=== PATIENT | male | born 1955 | race Caucasian/White ===

== ENCOUNTER → 2017-05-04 | Outpatient (CLI) | payer OTHER ==
[~2017-05-04] MED LIST: ALPR-475 PO; APIX2.5T PO; ASPI-496 PO; CARV6.2512 PO; CHOL20002 PO; CYAN1TAB29 PO; FURO20TA3 PO; HYDR-3307 PO; LEVO200T PO; LISI-167 PO; MULT-412 PO; NITR0.4T SL; OMEP-110 PO; PANT40TA5 PO; POTA25TA4 PO; PRAS10TA4 PO; SIMV40TA3 PO; SPIR25TA3 PO; ZOLP10TA PO
== END | disposition home or self-care (01) ==
LOC: CFH 10:44
PROVIDERS: ATTEND Physical Medicine & Rehabilitation
DX: M51.16 Intervertebral disc disorders with radiculopathy, lumbar region (principal); S33.39XA Dislocation of other parts of lumbar spine and pelvis, initial encounter; M47.897 Other spondylosis, lumbosacral region; M48.06 Spinal stenosis, lumbar region; X58.XXXA Exposure to other specified factors, initial encounter; Y93.89 Activity, other specified; Y92.89 Other specified places as the place of occurrence of the external cause; Y99.8 Other external cause status
CPT/HCPCS: 72131

== ENCOUNTER → 2018-01-30 | Outpatient (CLI) | payer OTHER | LOC: CVU 10:41 | PROVIDERS: ATTEND Internal Medicine Cardiovascular Disease | DX: I08.3 Combined rheumatic disorders of mitral, aortic and tricuspid valves (principal); I48.91 Unspecified atrial fibrillation; Z95.1 Presence of aortocoronary bypass graft | CPT/HCPCS: 93306 ==

== ENCOUNTER 2018-04-24 22:30 | Inpatient (IN) | payer OTHER ==
[~2018-04-24] VITALS: Ht 172.7 cm; Wt 78.2 kg
[~2018-04-24 22:30] MED LIST changes: -SPIR25TA3 PO; +SPIR25TA5 PO
[2018-04-24 22:49] LABS: BASOPHILS # (AUTO) 0.05 x10^3/uL (0-0.1); BASOPHILS % (AUTO) 0 % (0-1); EOSINOPHILS # (AUTO) 0.04 x10^3/uL (0-0.4); EOSINOPHILS % (AUTO) 0 % (1-7); LYMPHOCYTES % (AUTO) 16 % (22-44); MD NO; MEAN CORPUSCULAR HEMOGLOBIN 32.9 pg (27.5-34.5); MEAN CORPUSCULAR HGB CONC 33.4 g/dL (33.2-36.2); MEAN CORPUSCULAR VOLUME 98.7 fL (81-97); MEAN PLATELET VOLUME 9.6 fL (7.4-10.4); MONOCYTES # (AUTO) 0.45 x10^3/uL (0.2-0.8); MONOCYTES % (AUTO) 4 % (2-9); NEUTROPHILS # (AUTO) 9.25 x10^3/uL (1.8-6.8); NEUTROPHILS % (AUTO) 80 % (42-75); PLATELET COUNT 250 x10^3/uL (130-400); RED BLOOD COUNT 4.68 x10^6/uL (4.38-5.82); RED CELL DISTRIBUTION WIDTH 14.6 % (9.4-14.8)
[2018-04-24] MEDS ORDERED: ASPIRIN 81 MG TABLET CHEW ONE (22:54)
[2018-04-24] MEDS ORDERED: NITROGLYCERIN OINT 2%, 1GM TP ONE ×2 (22:54→23:00)
[2018-04-24] MEDS ORDERED: ASPIRIN 81 MG TABLET CHEW PO ONE (23:00)
[2018-04-24] MEDS ORDERED: SODIUM CHLORIDE FLUSH 10ML SYR IVF ONE (23:00)
[2018-04-24 23:01] LABS: ALANINE AMINOTRANSFERASE 96 U/L (12-78); ALBUMIN 3.9 g/dL (3.4-5.0); ANION GAP 7 mmol/L (5-15); CALCIUM 8.8 mg/dL (8.5-10.1); CHLORIDE 104 mmol/L (98-107)
[2018-04-24] MEDS ORDERED: MORPHINE SULFATE 4 MG/ML, 1ML ONE ×2 (23:02→23:26)
[2018-04-24 23:05] LABS: ALKALINE PHOSPHATASE 530 U/L (45-117); BILIRUBIN,TOTAL 2.7 mg/dL (0.2-1.0); TOTAL PROTEIN 8.1 g/dL (6.4-8.2); TROPONIN I 0.036 ng/mL (0.000-0.045)
[2018-04-24] MEDS: MORPHINE SULFATE 4 MG/ML, 1ML IVPush PRN ×2 (23:05→23:30)
[2018-04-24] MEDS ORDERED: ONDANSETRON 2MG/ML, 2ML ONE (23:06)
[2018-04-24 23:18] LABS: INTERNATIONAL NORMALIZED RATIO 1.11 (0.93-1.1); PROTHROMBIN TIME 11.5 Seconds (9.6-11.5)
[2018-04-24] MEDS ORDERED: ONDANSETRON 2MG/ML, 2ML IVPush ONE (23:30)
[2018-04-24] MEDS ORDERED: OMNIPAQUE 350 MG/ML, 100ML BOTTLE ONE (23:50)
[2018-04-25] MEDS ORDERED: LABETALOL 5MG/ML, 20ML ONE (00:19)
[2018-04-25] MEDS ORDERED: HYDROmorphone 2 MG/ML, 1ML IV ONE (00:30)
[2018-04-25] MEDS ORDERED: LABETALOL 5MG/ML, 20ML IVPush ONE (00:30)
[2018-04-25] MEDS ORDERED: ESMOLOL/NS PMX 250 ML IV PRN (00:30)
[2018-04-25] MEDS ORDERED: PROMETHAZINE 25 MG/ML, 1ML ONE (00:44)
[2018-04-25] MEDS ORDERED: PROMETHAZINE 25 MG/ML, 1ML IM ONE (01:00)
[2018-04-25] MEDS ORDERED: HYDROmorphone 2 MG/ML, 1ML ONE (01:39)
[2018-04-25 02:04] VITALS: BP 122/60
[2018-04-25 02:09] VITALS: BP 122/60
[2018-04-25] MEDS ORDERED: ONDANSETRON ODT 4 MG PO PRN (05:30)
[2018-04-25] MEDS ORDERED: POLYETHYLENE GLYCOL 17 GM PACKET PO PRN (05:30)
[2018-04-25] MEDS ORDERED: ONDANSETRON 2MG/ML, 2ML IVPush PRN (05:30)
[2018-04-25] MEDS ORDERED: LACTATED RINGERS 1,000 ML IV SCH ×2 (05:30→20:00)
[2018-04-25] MEDS ORDERED: ACETAMINOPHEN 325 MG TABLET PO PRN ×2 (05:30→14:30)
[2018-04-25] MEDS: morphine SULFATE 10 MG/ML, 1ML IVPush PRN ×6 (05:47→19:57)
[2018-04-25] MEDS: ENOXAPARIN 40 MG/0.4 ML SQ SCH (05:48)
[2018-04-25 06:26] LABS: MEAN CORPUSCULAR HEMOGLOBIN 33.2 pg (27.5-34.5); MEAN CORPUSCULAR HGB CONC 33.9 g/dL (33.2-36.2); MEAN CORPUSCULAR VOLUME 97.8 fL (81-97); MEAN PLATELET VOLUME 9.4 fL (7.4-10.4); PLATELET COUNT 225 x10^3/uL (130-400); RED BLOOD COUNT 4.48 x10^6/uL (4.38-5.82); RED CELL DISTRIBUTION WIDTH 14.8 % (9.4-14.8)
[2018-04-25 06:39] LABS: ALANINE AMINOTRANSFERASE 92 U/L (12-78); ANION GAP 9 mmol/L (5-15); CALCIUM 8.8 mg/dL (8.5-10.1); CHLORIDE 106 mmol/L (98-107); CREATININE 1.45 mg/dL (0.7-1.3)
[2018-04-25 06:41] VITALS: BP 129/60
[2018-04-25 06:41] LABS: ALBUMIN 3.5 g/dL (3.4-5.0); ALKALINE PHOSPHATASE 528 U/L (45-117); BASOPHILS # (AUTO) 0.02 x10^3/uL (0-0.1); BASOPHILS % (AUTO) 0 % (0-1); BILIRUBIN,TOTAL 5.6 mg/dL (0.2-1.0); EOSINOPHILS % (AUTO) 0 % (1-7); LYMPHOCYTES # (AUTO) 0.65 x10^3/uL (1-3.4); LYMPHOCYTES % (AUTO) 3 % (22-44); MD SCAN; MONOCYTES # (AUTO) 1.62 x10^3/uL (0.2-0.8); MONOCYTES % (AUTO) 6 % (2-9); NEUTROPHILS # (AUTO) 23.92 x10^3/uL (1.8-6.8); NEUTROPHILS % (AUTO) 91 % (42-75); TOTAL PROTEIN 7.3 g/dL (6.4-8.2)
[2018-04-25] MEDS: PANTOPRAZOLE 40 MG IV IVPush SCH (08:16)
[2018-04-25] MEDS: CEFTRIAXONE 1,000 MG in SODIUM CHLORIDE 0.9% 50 ML IV SCH (10:19)
[2018-04-25] MEDS ORDERED: BUPIVACAINE/PF-EPI 0.5% 1:200K ONE (10:36)
[2018-04-25] MEDS: METRONIDAZOLE PMX 500MG/100ML 100 ML IV SCH ×2 (11:05→19:57)
[2018-04-25 12:46] VITALS: BP 142/61
[2018-04-25 12:49] LABS: TROPONIN I 0.039 ng/mL (0.000-0.045)
[2018-04-25] MEDS ORDERED: NEOSTIGMINE 1 MG/ML, 10ML ONE (14:00)
[2018-04-25] MEDS ORDERED: GLYCOPYRROLATE 0.2MG/1ML, 5ML ONE (14:00)
[2018-04-25] MEDS ORDERED: CEFOTETAN PMX 2GM/50ML 50 ML IVPB ONE (14:00)
[2018-04-25] MEDS ORDERED: ROCURONIUM 10 MG/ML,10ML ONE (14:00)
[2018-04-25] MEDS ORDERED: DEXAMETHASONE 4 MG/ML, 1ML ONE (14:00)
[2018-04-25] MEDS ORDERED: PROPOFOL 10 MG/ML, 20ML ONE (14:00)
[2018-04-25] MEDS ORDERED: SUCCINYLCHOLINE 20 MG/ML, 10ML ONE (14:00)
[2018-04-25] MEDS ORDERED: ONDANSETRON 2MG/ML, 2ML ONE (14:00)
[2018-04-25] MEDS ORDERED: MIDAZOLAM 1 MG/ML, 2ML ONE (14:01)
[2018-04-25] MEDS ORDERED: FENTANYL PF 100 MCG/2ML ONE ×3 (14:01→15:23)
[2018-04-25] MEDS ORDERED: EPHEDRINE 50 MG/ML, 1ML IVPush PRN (14:30)
[2018-04-25] MEDS ORDERED: HYDROcodone/APAP 7.5-325MG/15ML UDC PO PRN (14:30)
[2018-04-25] MEDS ORDERED: PROMETHAZINE 25 MG/ML, 1ML IV PRN (14:30)
[2018-04-25] MEDS ORDERED: FENTANYL PF 100 MCG/2ML IV PRN (14:30)
[2018-04-25] MEDS ORDERED: OXYcodone 5 MG/5 ML ORAL.SOL UDC PO PRN (14:30)
[2018-04-25] MEDS ORDERED: HYDROmorphone 1 MG/ML, 1ML IV PRN (14:30)
[2018-04-25] MEDS ORDERED: hydrALAzine 20 MG/ML, 1ML IV PRN (14:30)
[2018-04-25] MEDS ORDERED: MEPERIDINE/PF 25MG/0.5ML IVPush PRN (14:30)
[2018-04-25] MEDS ORDERED: ALBUTEROL SULFATE 2.5 MG/3 ML NPPB PRN (14:30)
[2018-04-25] MEDS ORDERED: ONDANSETRON 2MG/ML, 2ML IV PRN (14:30)
[2018-04-25] MEDS ORDERED: MIDAZOLAM 1 MG/ML, 2ML IV PRN (14:30)
[2018-04-25] MEDS ORDERED: LABETALOL 5MG/ML, 20ML IV PRN (14:30)
[2018-04-25] MEDS ORDERED: OMNIPAQUE 350 MG/ML, 50 ML BOTTLE ONE (14:57)
[2018-04-25] MEDS ORDERED: OXYcodone 5 MG/5 ML ORAL.SOL UDC ONE (15:24)
[2018-04-25] MEDS ORDERED: MORPHINE SULFATE 4 MG/ML, 1ML ONE (15:52)
[2018-04-25 18:15] VITALS: BP 130/57
[2018-04-26] MEDS: morphine SULFATE 10 MG/ML, 1ML IVPush PRN ×7 (00:36→22:55)
[2018-04-26 00:49] VITALS: BP 127/68
[2018-04-26] MEDS: METRONIDAZOLE PMX 500MG/100ML 100 ML IV SCH ×3 (04:20→22:19)
[2018-04-26 05:12] LABS: MEAN CORPUSCULAR HGB CONC 33.8 g/dL (33.2-36.2); MEAN CORPUSCULAR VOLUME 97.6 fL (81-97); MEAN PLATELET VOLUME 10.2 fL (7.4-10.4); PLATELET COUNT 211 x10^3/uL (130-400); RED BLOOD COUNT 4.38 x10^6/uL (4.38-5.82); RED CELL DISTRIBUTION WIDTH 14.6 % (9.4-14.8)
[2018-04-26] MEDS ORDERED: LACTATED RINGERS 1,000 ML IV SCH (05:30)
[2018-04-26 05:38] LABS: CHLORIDE 105 mmol/L (98-107)
[2018-04-26 05:41] LABS: MD YES
[2018-04-26 05:44] LABS: BAND#(MANUAL) 3.66 x10^3/uL; BANDS%(MANUAL) 20 % (0-7); LYMPH#(MANUAL) 0.92 x10^3/uL (1-3.4); LYMPHS% (MANUAL) 5 % (22-44); METAMYELOCYTES# (MANUAL) 0.18 x10^3/uL (0-0); METAMYELOCYTES% (MANUAL) 1 % (0-1); MONOS% (MANUAL) 6 % (2-9); SEG#(MANUAL) 12.44 x10^3/uL (1.8-6.8); SEGS% (MANUAL) 68 % (42-75)
[2018-04-26 05:46] LABS: <PLATELET ESTIMATE> ADEQUATE; <PLT MORPHOLOGY> NORMAL PLT MORPH; <RBC MORPHOLOGY> NORMAL
[2018-04-26 05:48] LABS: ALANINE AMINOTRANSFERASE 87 U/L (12-78); ALBUMIN 2.8 g/dL (3.4-5.0); ALKALINE PHOSPHATASE 397 U/L (45-117); ANION GAP 11 mmol/L (5-15); BILIRUBIN,TOTAL 7.7 mg/dL (0.2-1.0); CALCIUM 8.4 mg/dL (8.5-10.1); CREATININE 1.98 mg/dL (0.7-1.3); TOTAL PROTEIN 6.6 g/dL (6.4-8.2)
[2018-04-26 07:34] VITALS: BP 134/66
[2018-04-26] MEDS: PANTOPRAZOLE 40 MG IV IVPush SCH (08:28)
[2018-04-26] MEDS ORDERED: PROPOFOL 10 MG/ML, 20ML ONE (10:33)
[2018-04-26] MEDS ORDERED: ONDANSETRON 2MG/ML, 2ML ONE (10:33)
[2018-04-26] MEDS ORDERED: ROCURONIUM 10MG/ML,5ML ONE (10:33)
[2018-04-26] MEDS ORDERED: DEXAMETHASONE 4 MG/ML, 1ML ONE (10:33)
[2018-04-26] MEDS ORDERED: NEOSTIGMINE 1 MG/ML, 10ML ONE (10:33)
[2018-04-26] MEDS ORDERED: ROCURONIUM 10 MG/ML,10ML ONE (10:33)
[2018-04-26] MEDS ORDERED: GLYCOPYRROLATE 0.2MG/1ML, 5ML ONE (10:33)
[2018-04-26] MEDS: CEFTRIAXONE 1,000 MG in SODIUM CHLORIDE 0.9% 50 ML IV SCH (11:25)
[2018-04-26] MEDS ORDERED: FENTANYL PF 100 MCG/2ML ONE ×2 (12:04→13:20)
[2018-04-26] MEDS ORDERED: MIDAZOLAM 1 MG/ML, 2ML ONE (12:04)
[2018-04-26] MEDS ORDERED: ACETAMINOPHEN 325 MG TABLET PO PRN (12:30)
[2018-04-26] MEDS ORDERED: hydrALAzine 20 MG/ML, 1ML IV PRN (12:30)
[2018-04-26] MEDS ORDERED: HYDROmorphone 1 MG/ML, 1ML IV PRN (12:30)
[2018-04-26] MEDS ORDERED: ONDANSETRON 2MG/ML, 2ML IV PRN (12:30)
[2018-04-26] MEDS ORDERED: HYDROcodone/APAP 7.5-325MG/15ML UDC PO PRN (12:30)
[2018-04-26] MEDS ORDERED: PROMETHAZINE 25 MG/ML, 1ML IV PRN (12:30)
[2018-04-26] MEDS ORDERED: ALBUTEROL SULFATE 2.5 MG/3 ML NPPB PRN (12:30)
[2018-04-26] MEDS ORDERED: MEPERIDINE/PF 25MG/0.5ML IVPush PRN (12:30)
[2018-04-26] MEDS ORDERED: EPHEDRINE 50 MG/ML, 1ML IVPush PRN (12:30)
[2018-04-26] MEDS ORDERED: MIDAZOLAM 1 MG/ML, 2ML IV PRN (12:30)
[2018-04-26] MEDS ORDERED: LABETALOL 5MG/ML, 20ML IV PRN (12:30)
[2018-04-26] MEDS: FENTANYL PF 100 MCG/2ML IV PRN ×5 (13:15→16:11)
[2018-04-26] MEDS ORDERED: OXYcodone 5 MG/5 ML ORAL.SOL UDC ONE (13:54)
[2018-04-26] MEDS: OXYcodone 5 MG/5 ML ORAL.SOL UDC PO PRN (13:55)
[2018-04-26] MEDS: ENOXAPARIN 40 MG/0.4 ML SQ SCH (17:27)
[2018-04-26 19:25] VITALS: BP 121/63
[2018-04-26] MEDS: LACTATED RINGERS 1,000 ML IV SCH (22:19)
[2018-04-27 02:36] VITALS: BP 145/83
[2018-04-27] MEDS: morphine SULFATE 10 MG/ML, 1ML IVPush PRN ×5 (02:51→20:27)
[2018-04-27] MEDS: METRONIDAZOLE PMX 500MG/100ML 100 ML IV SCH ×3 (04:48→20:27)
[2018-04-27 05:56] LABS: ALBUMIN 2.6 g/dL (3.4-5.0); ANION GAP 9 mmol/L (5-15); CALCIUM 8.2 mg/dL (8.5-10.1); CHLORIDE 102 mmol/L (98-107)
[2018-04-27 05:59] LABS: MEAN CORPUSCULAR HEMOGLOBIN 32.8 pg (27.5-34.5); MEAN CORPUSCULAR HGB CONC 33.3 g/dL (33.2-36.2); MEAN CORPUSCULAR VOLUME 98.6 fL (81-97); MEAN PLATELET VOLUME 10.7 fL (7.4-10.4); PLATELET COUNT 216 x10^3/uL (130-400); RED BLOOD COUNT 4.04 x10^6/uL (4.38-5.82); RED CELL DISTRIBUTION WIDTH 14.9 % (9.4-14.8)
[2018-04-27 06:01] LABS: ALANINE AMINOTRANSFERASE 73 U/L (12-78); ALKALINE PHOSPHATASE 384 U/L (45-117); BILIRUBIN,TOTAL 5.4 mg/dL (0.2-1.0); TOTAL PROTEIN 6.5 g/dL (6.4-8.2)
[2018-04-27 06:18] LABS: MD YES
[2018-04-27 06:20] LABS: <PLATELET ESTIMATE> ADEQUATE; <PLT MORPHOLOGY> NORMAL PLT MORPH; <RBC MORPHOLOGY> NORMAL; BAND#(MANUAL) 2.38 x10^3/uL; BANDS%(MANUAL) 16 % (0-7); LYMPHS% (MANUAL) 2 % (22-44); METAMYELOCYTES% (MANUAL) 2 % (0-1); MONOS% (MANUAL) 2 % (2-9); SEG#(MANUAL) 11.62 x10^3/uL (1.8-6.8); SEGS% (MANUAL) 78 % (42-75)
[2018-04-27 07:06] VITALS: BP 146/80
[2018-04-27] MEDS: PANTOPRAZOLE 40 MG IV IVPush SCH (07:52)
[2018-04-27] MEDS: LACTATED RINGERS 1,000 ML IV SCH ×2 (08:19→19:43)
[2018-04-27] MEDS: CEFTRIAXONE 1,000 MG in SODIUM CHLORIDE 0.9% 50 ML IV SCH (10:52)
[2018-04-27 13:41] VITALS: BP 160/73
[2018-04-27] MEDS ORDERED: FUROSEMIDE 40 MG/4 ML IV ONE (16:30)
[2018-04-27] MEDS: ENOXAPARIN 40 MG/0.4 ML SQ SCH (16:48)
[2018-04-27 17:47] VITALS: BP 148/88
[2018-04-27] MEDS ORDERED: SODIUM CHLORIDE 0.9% IV PRN (18:30)
[2018-04-27] MEDS ORDERED: VERAPAMIL IV PRN (18:30)
[2018-04-27] MEDS ORDERED: VERAPAMIL 2.5 MG/ML, 4ML IVPush ONE (18:30)
[2018-04-27] MEDS ORDERED: VERAPAMIL 2.5 MG/ML, 2ML ONE (18:42)
[2018-04-27] MEDS ORDERED: VERAPAMIL 2.5 MG/ML, 2ML IVPush ONE (19:00)
[2018-04-27 20:10] VITALS: BP 108/58
[2018-04-28] MEDS: METRONIDAZOLE PMX 500MG/100ML 100 ML IV SCH ×3 (03:32→20:36)
[2018-04-28] MEDS: morphine SULFATE 10 MG/ML, 1ML IVPush PRN ×5 (03:32→23:40)
[2018-04-28 03:36] VITALS: BP 184/76
[2018-04-28 03:54] LABS: MICROSCOPIC INDICATED
[2018-04-28 03:58] LABS: CHLORIDE,URINE RANDOM 85 mmol/L; POTASSIUM,URINE RANDOM 23 mmol/L; SODIUM,URINE RANDOM 68 mmol/L; TOTAL PROTEIN,URINE RANDOM 9 mg/dL (0-12)
[2018-04-28 04:06] LABS: CULTURE INDICATED? NO
[2018-04-28 05:27] LABS: MEAN CORPUSCULAR HGB CONC 33.6 g/dL (33.2-36.2); MEAN PLATELET VOLUME 10.3 fL (7.4-10.4); PLATELET COUNT 233 x10^3/uL (130-400); RED BLOOD COUNT 3.91 x10^6/uL (4.38-5.82); RED CELL DISTRIBUTION WIDTH 15.1 % (9.4-14.8)
[2018-04-28] MEDS: LACTATED RINGERS 1,000 ML IV SCH (05:30)
[2018-04-28 05:41] LABS: ALBUMIN 2.4 g/dL (3.4-5.0); ANION GAP 6 mmol/L (5-15); CALCIUM 8.4 mg/dL (8.5-10.1); CHLORIDE 103 mmol/L (98-107)
[2018-04-28 05:46] LABS: ALANINE AMINOTRANSFERASE 55 U/L (12-78); ALKALINE PHOSPHATASE 315 U/L (45-117); BILIRUBIN,TOTAL 3.1 mg/dL (0.2-1.0); CREATINE KINASE, TOTAL 41 U/L (39-308); CREATININE 1.83 mg/dL (0.7-1.3); TOTAL PROTEIN 5.8 g/dL (6.4-8.2)
[2018-04-28 06:15] LABS: MD YES
[2018-04-28 06:18] LABS: BAND#(MANUAL) 0.72 x10^3/uL; BANDS%(MANUAL) 4 % (0-7)
[2018-04-28 06:19] LABS: LYMPH#(MANUAL) 0.91 x10^3/uL (1-3.4); LYMPHS% (MANUAL) 5 % (22-44); MONOS#(MANUAL) 0.91 x10^3/uL (0.3-2.7); MONOS% (MANUAL) 5 % (2-9); SEG#(MANUAL) 15.57 x10^3/uL (1.8-6.8); SEGS% (MANUAL) 86 % (42-75)
[2018-04-28 06:21] LABS: ANISOCYTOSIS 1+; OVALOCYTES 1+; POLYCHROMASIA 1+; TARGET CELLS 1+
[2018-04-28 06:22] LABS: <PLATELET ESTIMATE> ADEQUATE; LARGE PLATELETS 1+
[2018-04-28 06:40] VITALS: BP 151/70
[2018-04-28] MEDS: PANTOPRAZOLE 40 MG IV IVPush SCH (08:49)
[2018-04-28] MEDS: OXYcodone 5 MG/5 ML ORAL.SOL UDC PO PRN ×2 (08:55→22:41)
[2018-04-28] MEDS: CEFTRIAXONE 1,000 MG in SODIUM CHLORIDE 0.9% 50 ML IV SCH (12:05)
[2018-04-28 12:15] VITALS: BP 188/75
[2018-04-28] MEDS: ENOXAPARIN 40 MG/0.4 ML SQ SCH (18:23)
[2018-04-28] MEDS: METOPROLOL TARTRATE 50 MG TABLET PO SCH (18:46)
[2018-04-28 20:28] VITALS: BP 151/71
[2018-04-28] MEDS: AMLODIPINE 5 MG TABLET PO SCH (20:36)
[2018-04-29] VITALS (7 sets, daily range): BP systolic 109–184; BP diastolic 62–78
[2018-04-29] MEDS: OXYcodone 5 MG/5 ML ORAL.SOL UDC PO PRN (02:05)
[2018-04-29] MEDS: morphine SULFATE 10 MG/ML, 1ML IVPush PRN ×2 (04:05→17:49)
[2018-04-29] MEDS: METRONIDAZOLE PMX 500MG/100ML 100 ML IV SCH ×3 (04:09→20:39)
[2018-04-29] MEDS: METOPROLOL TARTRATE 50 MG TABLET PO SCH ×2 (05:55→17:50)
[2018-04-29] MEDS: AMLODIPINE 5 MG TABLET PO SCH ×2 (08:57→20:39)
[2018-04-29] MEDS: PANTOPRAZOLE 40 MG IV IVPush SCH (08:57)
[2018-04-29] MEDS: CEFTRIAXONE 1,000 MG in SODIUM CHLORIDE 0.9% 50 ML IV SCH (09:49)
[2018-04-29 10:27] LABS: ALBUMIN 2.8 g/dL (3.4-5.0); ANION GAP 10 mmol/L (5-15); CALCIUM 8.3 mg/dL (8.5-10.1); CHLORIDE 102 mmol/L (98-107)
[2018-04-29 10:28] LABS: CREATININE 1.28 mg/dL (0.7-1.3)
[2018-04-29] MEDS ORDERED: DILTIAZEM 5 MG/ML, 5ML IVPush ONE (11:00)
[2018-04-29] MEDS ORDERED: DIGOXIN 0.25 MG/ML, 2ML IVPush ONE (11:30)
[2018-04-29] MEDS ORDERED: LORazepam 2 MG/ML, 1ML IVPush ONE (11:30)
[2018-04-29] MEDS: TEMAZEPAM 15 MG CAPSULE PO PRN (20:39)
[2018-04-29] MEDS: ENOXAPARIN 40 MG/0.4 ML SQ SCH (20:39)
[2018-04-30] MEDS: morphine SULFATE 10 MG/ML, 1ML IVPush PRN ×3 (01:26→08:46)
[2018-04-30 01:28] VITALS: BP 173/64
[2018-04-30 05:13] VITALS: BP 159/60
[2018-04-30] MEDS: METOPROLOL TARTRATE 50 MG TABLET PO SCH (05:15)
[2018-04-30] MEDS: METRONIDAZOLE PMX 500MG/100ML 100 ML IV SCH ×3 (05:15→19:53)
[2018-04-30 05:35] LABS: MEAN CORPUSCULAR HEMOGLOBIN 32.7 pg (27.5-34.5); MEAN CORPUSCULAR HGB CONC 33.5 g/dL (33.2-36.2); MEAN CORPUSCULAR VOLUME 97.5 fL (81-97); MEAN PLATELET VOLUME 10.2 fL (7.4-10.4); PLATELET COUNT 283 x10^3/uL (130-400); RED BLOOD COUNT 4.36 x10^6/uL (4.38-5.82); RED CELL DISTRIBUTION WIDTH 14.8 % (9.4-14.8)
[2018-04-30 05:48] LABS: CHLORIDE 105 mmol/L (98-107)
[2018-04-30 05:52] LABS: ALBUMIN 2.5 g/dL (3.4-5.0); ANION GAP 7 mmol/L (5-15); CALCIUM 8.1 mg/dL (8.5-10.1); CREATININE 1.19 mg/dL (0.7-1.3)
[2018-04-30 06:38] LABS: BASOPHILS # (AUTO) 0.06 x10^3/uL (0-0.1); BASOPHILS % (AUTO) 0 % (0-1); EOSINOPHILS # (AUTO) 0.09 x10^3/uL (0-0.4); EOSINOPHILS % (AUTO) 1 % (1-7); LYMPHOCYTES # (AUTO) 1.85 x10^3/uL (1-3.4); LYMPHOCYTES % (AUTO) 11 % (22-44); MD SCAN; MONOCYTES # (AUTO) 2.09 x10^3/uL (0.2-0.8); MONOCYTES % (AUTO) 12 % (2-9); NEUTROPHILS % (AUTO) 77 % (42-75)
[2018-04-30 08:00] VITALS: BP 153/65
[2018-04-30] MEDS ORDERED: MAGNESIUM SULFATE PMX 2GM/50ML 50 ML IV ONE (08:30)
[2018-04-30] MEDS ORDERED: POTASSIUM PHOSPHATE 44 MEQ in SODIUM CHLORIDE 0.9% 500 ML IV ONE (08:30)
[2018-04-30] MEDS: PANTOPRAZOLE 40 MG IV IVPush SCH (08:48)
[2018-04-30] MEDS: AMLODIPINE 5 MG TABLET PO SCH ×2 (08:58→19:53)
[2018-04-30] MEDS: CEFTRIAXONE 1,000 MG in SODIUM CHLORIDE 0.9% 50 ML IV SCH (10:00)
[2018-04-30] MEDS: OXYcodone/APAP 5/325MG TABLET PO PRN ×2 (11:22→17:04)
[2018-04-30 14:40] VITALS: BP 131/62
[2018-04-30] MEDS: METOPROLOL TARTRATE 100 MG TABLET PO SCH (18:02)
[2018-04-30] MEDS: ENOXAPARIN 40 MG/0.4 ML SQ SCH (19:53)
[2018-04-30 20:15] VITALS: BP 147/62
[2018-04-30] MEDS: TEMAZEPAM 15 MG CAPSULE PO PRN (22:05)
[2018-05-01] MEDS: OXYcodone/APAP 5/325MG TABLET PO PRN ×3 (01:49→13:40)
[2018-05-01 01:52] VITALS: BP 173/62
[2018-05-01] MEDS: METRONIDAZOLE PMX 500MG/100ML 100 ML IV SCH ×2 (04:25→12:02)
[2018-05-01 05:16] LABS: MEAN CORPUSCULAR HEMOGLOBIN 32.7 pg (27.5-34.5); MEAN CORPUSCULAR HGB CONC 33.7 g/dL (33.2-36.2); MEAN CORPUSCULAR VOLUME 97.2 fL (81-97); MEAN PLATELET VOLUME 10.3 fL (7.4-10.4); PLATELET COUNT 275 x10^3/uL (130-400); RED BLOOD COUNT 4.32 x10^6/uL (4.38-5.82); RED CELL DISTRIBUTION WIDTH 14.9 % (9.4-14.8)
[2018-05-01 05:32] LABS: ALBUMIN 2.4 g/dL (3.4-5.0); CHLORIDE 105 mmol/L (98-107)
[2018-05-01 05:38] LABS: ALANINE AMINOTRANSFERASE 32 U/L (12-78); ALKALINE PHOSPHATASE 331 U/L (45-117); ANION GAP 6 mmol/L (5-15); BILIRUBIN,TOTAL 1.7 mg/dL (0.2-1.0); CREATININE 1.08 mg/dL (0.7-1.3); TOTAL PROTEIN 5.6 g/dL (6.4-8.2)
[2018-05-01 05:40] LABS: MD YES
[2018-05-01 05:41] LABS: BANDS%(MANUAL) 1 % (0-7); EOS% (MANUAL) 1 % (1-7); LYMPH#(MANUAL) 1.96 x10^3/uL (1-3.4); LYMPHS% (MANUAL) 10 % (22-44); MONOS#(MANUAL) 0.98 x10^3/uL (0.3-2.7); MONOS% (MANUAL) 5 % (2-9); MYELOCYTES# (MANUAL) 0.39 x10^3/uL (0-0); MYELOCYTES% (MANUAL) 2 % (0-0); SEG#(MANUAL) 15.88 x10^3/uL (1.8-6.8); SEGS% (MANUAL) 81 % (42-75)
[2018-05-01 05:42] LABS: POLYCHROMASIA 1+; TARGET CELLS 1+
[2018-05-01 05:43] LABS: <PLATELET ESTIMATE> ADEQUATE; LARGE PLATELETS 1+
[2018-05-01 06:01] VITALS: BP 145/66
[2018-05-01] MEDS: METOPROLOL TARTRATE 100 MG TABLET PO SCH (06:05)
[2018-05-01 07:30] VITALS: BP 136/58
[2018-05-01] MEDS: PANTOPRAZOLE 40 MG IV IVPush SCH (08:40)
[2018-05-01] MEDS: AMLODIPINE 5 MG TABLET PO SCH (08:42)
[2018-05-01] MEDS: CEFTRIAXONE 1,000 MG in SODIUM CHLORIDE 0.9% 50 ML IV SCH (10:28)
[2018-05-01 13:01] VITALS: BP 147/66
[2018-05-01] MEDS ORDERED: ONDA4TAB13 PO (13:46)
[2018-05-01] MEDS ORDERED: AMLO5TAB2 PO (13:46)
[2018-05-01] MEDS ORDERED: CEFD300C37 PO (13:46)
[2018-05-01] MEDS ORDERED: HYDR-3343 PO (13:46)
[2018-05-01] MEDS ORDERED: POLY17PO5 PO (13:46)
[2018-05-01] MEDS ORDERED: METR500T PO (13:46)
[2018-05-01] MEDS ORDERED: METO-99 PO (13:46)
[2018-05-01] MEDS ORDERED: OMEP-110 PO (13:46)
[2018-05-01 14:18] VITALS: BP 146/67
== END 2018-05-01 16:10 | disposition home or self-care (01) | DRG 853 ==
LOC: ED 22:54 → EDIP 04-25 01:24 → 4WST 04-25 02:03 → 5SO 04-27 18:27 → DCLOUNGE 05-01 15:44
PROVIDERS: ADMIT Hospitalist; ATTEND Hospitalist
PROC: 0FB04ZX Excision of Liver, Percutaneous Endoscopic Approach, Diagnostic (ICD-10-PCS; 2018-04-25)
PROC: BF131ZZ Fluoroscopy of Gallbladder and Bile Ducts using Low Osmolar Contrast (ICD-10-PCS; 2018-04-25)
PROC: 0FT44ZZ Resection of Gallbladder, Percutaneous Endoscopic Approach (ICD-10-PCS; principal; 2018-04-25 13:45)
PROC: 0F798ZZ Dilation of Common Bile Duct, Via Natural or Artificial Opening Endoscopic (ICD-10-PCS; 2018-04-26)
PROC: 0F778ZZ Dilation of Common Hepatic Duct, Via Natural or Artificial Opening Endoscopic (ICD-10-PCS; 2018-04-26)
DX: A41.9 Sepsis, unspecified organism (principal); N17.0 Acute kidney failure with tubular necrosis; I71.02 Dissection of abdominal aorta; E43 Unspecified severe protein-calorie malnutrition; I50.22 Chronic systolic (congestive) heart failure; K80.43 Calculus of bile duct with acute cholecystitis with obstruction; K92.2 Gastrointestinal hemorrhage, unspecified; E03.9 Hypothyroidism, unspecified; I25.10 Atherosclerotic heart disease of native coronary artery without angina pectoris; I48.0 Paroxysmal atrial fibrillation; G89.4 Chronic pain syndrome; K74.60 Unspecified cirrhosis of liver; I11.0 Hypertensive heart disease with heart failure; M51.36 Other intervertebral disc degeneration, lumbar region; N14.1 Nephropathy induced by other drugs, medicaments and biological substances; T50.8X5A Adverse effect of diagnostic agents, initial encounter; E78.5 Hyperlipidemia, unspecified; Z95.1 Presence of aortocoronary bypass graft; Z95.5 Presence of coronary angioplasty implant and graft; Z90.81 Acquired absence of spleen; Z95.2 Presence of prosthetic heart valve; Z90.2 Acquired absence of lung [part of]; Z72.89 Other problems related to lifestyle; Z80.0 Family history of malignant neoplasm of digestive organs; Z79.82 Long term (current) use of aspirin; Z79.899 Other long term (current) drug therapy; Z85.528 Personal history of other malignant neoplasm of kidney; Z85.118 Personal history of other malignant neoplasm of bronchus and lung; Y92.89 Other specified places as the place of occurrence of the external cause; Z92.3 Personal history of irradiation; Z86.19 Personal history of other infectious and parasitic diseases; Z68.26 Body mass index [BMI] 26.0-26.9, adult; Z85.72 Personal history of non-Hodgkin lymphomas
CPT/HCPCS: 36415; 74300; 74328; 99291; J3490; 71045; 71275; 74175; 76700; 80053; 80069; 81001; 82043; 82306; 82436; 82550; 83690; 83735; 83970; 84100; 84133; 84156; 84300; 84484; 85025; 85610; 85730; 87040; 88304; 88307; 88313; 93005; J0696; J1100; J1170; J1650; J1940; J2250; J2405; J2550; J2704; J2710; J3010; Q9967; C9113; J0330; J1160; J2060; J2270; J3475; J7040; J7050; J7120; S0074

== ENCOUNTER → 2018-07-27 | Outpatient (CLI) | payer MEDICARE ==
[~2018-07-27] MED LIST changes: +AMLO5TAB7 PO; +CEFD300C37 PO; -CHOL20002 PO; +CHOL200052 PO; +HYDR-3343 PO; +METO-99 PO; +METR500T PO; +OMNIPAQUE 350 MG/ML, 75ML BOTTLE ONE; +ONDA4TAB13 PO; +POLY17PO5 PO
== END | disposition home or self-care (01) ==
LOC: CFH 14:23
PROVIDERS: ATTEND Family Medicine
DX: G43.009 Migraine without aura, not intractable, without status migrainosus (principal)
CPT/HCPCS: 70470; 82565; Q9967

== ENCOUNTER 2018-10-05 15:29 | Outpatient (CLI) | payer MEDICARE ==
[~2018-10-05 15:29] MED LIST changes: +AMLO-150 PO; -AMLO5TAB7 PO; -OMNIPAQUE 350 MG/ML, 75ML BOTTLE ONE
== END 2018-10-05 23:59 | disposition home or self-care (01) ==
LOC: CFH 15:29
PROVIDERS: ATTEND Internal Medicine Cardiovascular Disease
DX: I08.3 Combined rheumatic disorders of mitral, aortic and tricuspid valves (principal)
CPT/HCPCS: 93306

== ENCOUNTER → 2019-11-21 | Outpatient (CLI) | payer MEDICARE ==
[~2019-11-21] MED LIST changes: -ALPR-475 PO; +ALPR0.5T7 PO; -HYDR-3307 PO; +HYDR-36 PO; -NITR0.4T SL; +NITR0.4T41 SL; +SIMV40TA20 PO; -SIMV40TA3 PO
== END | disposition home or self-care (01) ==
LOC: CFH 08:33
PROVIDERS: ATTEND Internal Medicine Cardiovascular Disease
DX: I08.3 Combined rheumatic disorders of mitral, aortic and tricuspid valves (principal)
CPT/HCPCS: 93306

== ENCOUNTER 2020-04-16 12:50 | Outpatient (CLI) | payer MEDICARE ==
[~2020-04-16 12:50] MED LIST changes: +HYDR-3246 PO; -HYDR-36 PO; -PANT40TA5 PO; +PANT40TA6 PO
== END 2020-04-16 23:59 | disposition home or self-care (01) ==
LOC: CARD 12:50
PROVIDERS: ATTEND Internal Medicine Cardiovascular Disease
DX: R06.02 Shortness of breath (principal)
CPT/HCPCS: 94060; 94726; 94729